=== PATIENT | female | born 1935 | race Two or more races ===

== ENCOUNTER 2018-09-16 13:23 | Emergency (ER) | payer MEDICARE, OTHER ==
[~2018-09-16] VITALS: Ht 160 cm; Wt 71.7 kg
[2018-09-16] MEDS ORDERED: ATOR20TA PO (13:57)
[2018-09-16] MEDS ORDERED: GLIP2.5T3 PO (13:57)
[2018-09-16] MEDS ORDERED: METO-356 PO (13:57)
[2018-09-16] MEDS ORDERED: SERT100T PO (13:57)
[2018-09-16] MEDS ORDERED: MULTIVITAMIN W/MIN PO (13:57)
[2018-09-16] MEDS ORDERED: CHOL200078 PO (13:57)
[2018-09-16] MEDS ORDERED: DONE10TA44 PO (13:57)
[2018-09-16] MEDS ORDERED: RIVA10TA PO (13:57)
[2018-09-16] MEDS ORDERED: OXYB5TAB11 PO (13:57)
[2018-09-16] MEDS ORDERED: AMLO2.5T4 PO (13:57)
[2018-09-16] MEDS ORDERED: ZOLP5TAB8 PO (13:57)
[2018-09-16] MEDS ORDERED: LACT1CAP61 PO (13:57)
[2018-09-16] MEDS ORDERED: PANT40TA4 PO (13:57)
[2018-09-16] MEDS ORDERED: POLY17PO4 PO (13:57)
--- NOTE | 2018-09-16 14:00 | NUR ---
pt walked into er with son who is tracie the report that the pt is non- compliant, aggressive behavior. pt is here for medical clearance and psych eval. per pt son,German was contacted already. pt [id number], calm and cooperative at this time.
--- NOTE | 2018-09-16 14:10 | NUR ---
pt eating sandwich brought by family members.
[2018-09-16 14:43] LABS: BASOPHILS # (AUTO) 0.1 K/uL (0.0-8.0); BASOPHILS % (AUTO) 1.3 % (0.0-2.0); EOSINOPHILS # (AUTO) 0.1 K/uL (0.0-0.7); HEMATOCRIT 37.2 % (31.2-41.9); LYMPHOCYTES # (AUTO) 1.1 K/uL (20.0-40.0); LYMPHOCYTES % (AUTO) 24.4 % (20.5-51.5); MEAN CORPUSCULAR HGB CONC 32 g/dL (32.3-35.6); MEAN CORPUSCULAR VOLUME 86.5 fL (75.5-95.3); MONOCYTES # (AUTO) 0.5 K/uL (2.0-10.0); MONOCYTES % (AUTO) 10.9 % (0.0-11.0); NEUTROPHILS # (AUTO) 2.8 K/uL (1.8-8.9); NEUTROPHILS % (AUTO) 61.4 % (38.5-71.5); PLATELET COUNT (AUTO) 201 K/uL (179-408); WHITE BLOOD COUNT (AUTO) 4.6 K/uL (3.8-11.8)
[2018-09-16 14:52] LABS: CARBON DIOXIDE 28 mmol/L (21-32); CHLORIDE 106 mmol/L (98-107); CREATININE 0.9 mg/dL (0.6-1.3); GLUCOSE 77 mg/dL (74-106); POTASSIUM 3.6 mmol/L (3.5-5.1); UREA NITROGEN, BLOOD 21 mg/dL (7-18)
[2018-09-16 14:57] LABS: ALANINE AMINOTRANSFERASE 19 U/L (14-59); ALKALINE PHOSPHATASE 41 U/L (50-136); ASPARTATE AMINOTRANSFERASE 14 U/L (15-37); BILIRUBIN,DIRECT 0.1 mg/dL (0.0-0.2); BILIRUBIN,TOTAL 0.4 mg/dL (0.2-1.0); TOTAL PROTEIN, SERUM 7.8 g/dL (6.4-8.2)
[2018-09-16 14:58] LABS: ACETAMINOPHEN < 2.0 ug/mL (10-30)
[2018-09-16 15:01] LABS: ETHANOL < 3 MG/DL (0-0)
[2018-09-16 15:59] LABS: *BILIRUBIN,URIN NEGATIVE (NEGATIVE); *BLOOD, URINE NEGATIVE (NEGATIVE); *CLARITY,URINE CLEAR (CLEAR); *COLOR,URINE YELLOW (YELLOW); *KETONES,URINE NEGATIVE (NEGATIVE); *UROBILINOGEN,URINE 0.2 E.U./dl (NORMAL); LEUKOCYTE ESTERASE ,URINE TRACE (NEGATIVE); NITRITE, URINE NEGATIVE (NEGATIVE); PH,URINE 5.5 (5.0-8.0); UGLUCOSE NEGATIVE (NEGATIVE)
[2018-09-16 16:03] LABS: MUCUS,URINE MANY /LPF (0-FEW); SQUAMOUS EPITHELIAL CELL,UR FEW /HPF (NONE SEEN)
[2018-09-16 16:06] LABS: *AMPHETAMINE, URINE NEGATIVE (NEGATIVE); *BARBITURATE, URINE NEGATIVE (NEGATIVE); *CANNABINOID, URINE NEGATIVE (NEGATIVE); *COCCAINE, URINE NEGATIVE (NEGATIVE); *OPIATE, URINE NEGATIVE (NEGATIVE); *PHENCYCLIDINE SCREEN,URINE NEGATIVE (NEGATIVE)
--- NOTE | 2018-09-16 16:51 | NUR ---
misha here for psych eval. pt both daughter and son at bedside
--- NOTE | 2018-09-16 17:35 | NUR ---
Patient discharged to home in stable conditon. Written and verbal after care instructions given. Patient verbalizes understanding of instructions.pt walks in steady gait. pt accompanied by both daughter and son. pt happy that she is going home
[2018-09-16 17:38] VITALS: BP 139/81
== END 2018-09-16 17:40 | disposition home or self-care (01) ==
LOC: ER 13:23
DX: F79 Unspecified intellectual disabilities (principal); K21.9 Gastro-esophageal reflux disease without esophagitis; E11.9 Type 2 diabetes mellitus without complications; E78.5 Hyperlipidemia, unspecified; Z79.899 Other long term (current) drug therapy
CPT/HCPCS: 36415; 70450; 71045; 80048; 80076; 80307; 81001; 82140; 83605; 84443; 84484; 85025; 85730; 87040 ×2; 87086; 93005; 99284; G0480 ×2; G0481; 70030-TC; A4663

== ENCOUNTER 2021-04-01 15:02 | Emergency (ER) | payer MEDICARE, OTHER ==
[~2021-04-01] VITALS: Ht 160 cm; Wt 72.6 kg
[~2021-04-01 15:02] MED LIST: AMLO2.5T4 PO; ATOR20TA PO; CHOL200078 PO; DONE10TA44 PO; GLIP2.5T3 PO; LACT1CAP61 PO; METO-356 PO; MULTIVITAMIN W/MIN PO; OXYB5TAB16 PO; PANT40TA49 PO; POLY17PO4 PO; RIVA10TA PO; SERT100T PO; ZOLP5TAB8 PO
[2021-04-01] MEDS ORDERED: MORPHINE SULFATE 4 MG/1 ML DISP.SYRIN IV ONE (15:15)
[2021-04-01] MEDS ORDERED: ONDANSETRON 4 MG/2 ML VIAL IV ONE (15:15)
[2021-04-01] MEDS ORDERED: IV NORMAL SALINE 500 ML BAG IV ONE (15:15)
[2021-04-01] MEDS ORDERED: MORPHINE SULFATE 4 MG/1 ML DISP.SYRIN ONE ×2 (15:27→15:36)
[2021-04-01] MEDS ORDERED: ONDANSETRON 4 MG/2 ML VIAL ONE ×2 (15:27→15:36)
[2021-04-01 15:34] LABS: HEMATOCRIT 39.7 % (31.2-41.9); MEAN CORPUSCULAR HEMOGLOBIN 28.5 uug (24.7-32.8); MEAN CORPUSCULAR VOLUME 87.6 fL (75.5-95.3); PLATELET COUNT (AUTO) 210 K/uL (179-408)
[2021-04-01 15:40] LABS: CARBON DIOXIDE 27 mmol/L (21-32); CHLORIDE 107 mmol/L (98-107); GLUCOSE 109 mg/dL (74-106); POTASSIUM 3.8 mmol/L (3.5-5.1); UREA NITROGEN, BLOOD 26 mg/dL (7-18)
[2021-04-01] MEDS ORDERED: diphenhydrAMINE 50 MG/1 ML VIAL ONE (15:44)
[2021-04-01] MEDS ORDERED: diphenhydrAMINE 50 MG/1 ML VIAL IV ONE (15:45)
--- NOTE | 2021-04-01 16:20 | NUR ---
Patient sleeping on gurny with no distress noted.
[2021-04-01] MEDS ORDERED: BACL10TA PO (17:00)
[2021-04-01] MEDS ORDERED: ONDA4TAB5 PO (17:00)
[2021-04-01] MEDS ORDERED: HYDR-3972 PO (17:00)
[2021-04-01] MEDS ORDERED: POLY17PO4 PO (17:00)
[2021-04-01] MEDS ORDERED: ACET-2154 PO (17:00)
[2021-04-01] MEDS ORDERED: LACT10SO3 PO (17:02)
--- NOTE | 2021-04-01 17:10 | NUR ---
IV removed. Catheter intact and site benign. Pressure and 4x4 gauze applied to site. No bleeding noted.
[2021-04-01] MEDS ORDERED: MIRALAX 17 GM POWD.PACK PO ONE (17:15)
--- NOTE | 2021-04-01 17:20 | NUR ---
Patient discharged to home in stable condition with daughter taking patient home. Written and verbal after care instructions given. Patient verbalizes understanding of instructions. Stressed follow up or return to ER for worsening s/s.
[2021-04-01 17:21] VITALS: BP 135/75
[2021-04-01 17:21] LABS: BILIRUBIN,DIRECT 0.1 mg/dL (0.0-0.2); BILIRUBIN,TOTAL 0.4 mg/dL (0.2-1.0); TOTAL PROTEIN, SERUM 8.2 g/dL (6.4-8.2)
== END 2021-04-01 17:22 | disposition home or self-care (01) ==
LOC: ER 15:02
DX: R10.30 Lower abdominal pain, unspecified (principal); K59.00 Constipation, unspecified; G30.9 Alzheimer's disease, unspecified; F02.80 Dementia in other diseases classified elsewhere, unspecified severity, without behavioral disturbance, psychotic disturbance, mood disturbance, and anxiety; E11.9 Type 2 diabetes mellitus without complications; Z79.84 Long term (current) use of oral hypoglycemic drugs; K21.9 Gastro-esophageal reflux disease without esophagitis; E78.5 Hyperlipidemia, unspecified; Z86.718 Personal history of other venous thrombosis and embolism; Z79.01 Long term (current) use of anticoagulants; K57.30 Diverticulosis of large intestine without perforation or abscess without bleeding; N20.0 Calculus of kidney; Z91.041 Radiographic dye allergy status
CPT/HCPCS: 36415; 74176; 80048; 80076; 83605; 83690; 85025; 96361; 96374; 96375; 99284; J1200; J2270; J2405; J7040